=== PATIENT | female | born 1945 | race Caucasian/White ===

== ENCOUNTER → 2016-08-18 | Day surgery (SDC) | payer MEDICARE, BC ==
[~2016-08-18] MED LIST: BUPIVACAINE HCL PF 0.25% 30 ML VIAL ONE; BUPIVACAINE/EPINEPHRINE 0.25% 50 ML VIAL ONE; KETOROLAC TROMETHAMINE 30 MG/ML (IVP) VIAL IV PUSH ONE; LACTATED RINGER'S 1000 ML INJ 1,000 ML ONE; ONDANSETRON HCL 4 MG/2 ML VIAL IV PUSH ONE; PROPOFOL 200 MG/20 ML AMP IV ONE; RESP: ALBUTEROL 2.5 MG/3 ML NEB (SCH) ONE; ceFAZolin 2 GM PREMIX 50 ML ONE
--- NOTE | 2016-08-18 15:04 | TN ---
cc: RUBENS LEPE M.D., REBECCA (. M.D. DATE OF SURGERY: 08/18/2016 PREOPERATIVE DIAGNOSIS Symptomatic left inguinal hernia. POSTOPERATIVE DIAGNOSIS Symptomatic left inguinal hernia. Left direct inguinal hernia. Left femoral hernia. PROCEDURE Open repair left inguinal hernia and left femoral hernia with mesh. SURGEON Dr. Rubens Lepe SUPERVISOR TELEVISION CHASSIS REPAIR OMI Gan ANESTHESIA General. INDICATIONS This is a pleasant 71-year-old woman who was sent to me in consultation by Dr. Kassidy Delaney for evaluation of left inguinal pain. The patient has had multiple previous abdominal surgeries including cholecystectomy, appendectomy, colon resection with colostomy and colostomy takedown. She complains of pain in the left groin and pain going down the anterior left thigh. These symptoms started about 4-6 weeks prior to initial evaluation and her says she did a lot of twisting movements and lifting when they got new furniture around that time. Physical examination demonstrates a small tender bulge in the left groin which reproduces her pain. Plans are made for open operative repair of her left inguinal hernia. INTRAOPERATIVE FINDINGS Complete absence of the inguinal floor consistent with direct inguinal hernia. A small amount of preperitoneal fatty tissue along the femoral vein medially consistent with a small femoral hernia defect. Additional intraoperative findings: Mesh placed in the left lower quadrant of the abdominal wall with mesh claudine intact. ESTIMATED BLOOD LOSS Minimal. DESCRIPTION OF PROCEDURE IN DETAIL The patient was identified as Tiffany Read, taken to the operating room and placed in supine position. Sequential compression devices were placed on bilateral lower extremities. Following induction of adequate general anesthesia with a laryngeal mask, the left groin was prepped and draped in the usual sterile fashion with Betadine. A timeout procedure was performed. Following completion of the timeout procedure to everyone's satisfaction within the room, the proposed left groin incision was made with a marking pen and infiltrated with local anesthetic. The incision was carried out with scalpel and hemostasis controlled with electrocautery. Dissection continued posteriorly and scar tissue was encountered. In the inferolateral portion of an apparent polypropylene mesh was a couple of mesh claudine and the anterior abdominal wall fascia was identified. Dissection continued laterally and inferiorly which allowed for identification of the external oblique fascia which was from surrounding tissue with a combination of careful sharp dissection and blunt dissection. Local anesthetic was placed beneath the external oblique fascial fibers. They were opened in their direction using a scalpel and Metzenbaum scissor revealing an underlying branch of the ilioinguinal and superiorly and medially an iliohypogastric nerve. These nerves were identified and avoided. The round ligament was identified and fatty tissue alongside of it was mobilized from the pubic tubercle. The round ligament was divided between Susan clamps and suture ligated on each side with a 2-0 Vicryl suture ligature. No nerve material was grossly apparent associated with the round ligament. Evaluation of the inguinal floor demonstrated essential absence with protruding preperitoneal fatty tissue. Slightly lateral to this along the femoral canal a small amount of fatty tissue was seen protruding through a femoral hernia defect directly adjacent to the femoral vein. The femoral artery and vein were identified and avoided. A small piece of rolled ProLite mesh was then placed into the femoral defect adjacent to the femoral vein. From a 3 x 6 inch piece of ProLite mesh an appropriate size piece of flat mesh was cut and sized and customized to the patient's own anatomy. The mesh was sutured in position to cover the inguinal floor broadly using interrupted 0 Ethibond sutures. Sutures were placed above and below the pubic tubercle into Kimani's ligament and the shelving edge of the inguinal ligament inferiorly and laterally and into the internal oblique fascia superiorly and medially, taking special care to avoid the identified iliohypogastric nerve. The mesh was then tucked laterally beneath the external oblique fascial fibers. The wound was irrigated copiously with saline and suctioned out. There was no evidence of bleeding. A generous amount of local anesthetic was placed into the operative field and the external oblique fascia was closed in its direction with running 2-0 Vicryl suture. 3-0 Vicryl was placed in a Deborah's fascia scar location and the skin was approximated with running 4-0 Monocryl subcuticular suture. Dressings were applied with Mastisol and half-inch brown Steri-Strips. Gauze and Tegaderm completed the dressing. The patient tolerated the procedure without apparent complication. Sponge, needle, and instrument counts were correct at the end of the case. This case was assisted by my nurse practitioner. The specific skill set of a nurse practitioner was medically necessary to provide appropriate retraction and assist in identification of anatomic structures and placement of the mesh. During this surgical case the surgical garment assembly supervisor was at the back table providing appropriate instrumentation while the nurse practitioner was directly assisting me through the entirety of the procedure. MD BHAVIN De La Rosa/ELMA /2:21 PM /2:37 PM
== END | disposition home or self-care (01) ==
LOC: ESDC 11:48
PROVIDERS: ATTEND Surgery Trauma Surgery
DX: K40.90 Unilateral inguinal hernia, without obstruction or gangrene, not specified as recurrent (principal); K41.90 Unilateral femoral hernia, without obstruction or gangrene, not specified as recurrent
CPT/HCPCS: 00830; 49505; 49550; C1781; J0690; J1885; J2405; J3010; J7120; J7613